=== PATIENT | female | born 1960 | race Caucasian/White ===

== ENCOUNTER → 2021-11-20 10:22 | Outpatient (BNVA) | payer OTHER, SELFPAY | PROVIDERS: Visit Provider Emergency Medicine | DX: M79.672 Pain in left foot (principal) | CPT/HCPCS: 73630 ==

== ENCOUNTER → 2023-02-06 11:36 | Outpatient (BNVA) | payer OTHER, SELFPAY | PROVIDERS: Referring Provider Nurse Practitioner Family; Visit Provider Family Medicine | DX: K59.00 Constipation, unspecified (principal) | CPT/HCPCS: 74018 ==